=== PATIENT | male | born 1990 | race Caucasian/White ===

== ENCOUNTER 2023-10-26 08:00 | Emergency (ER) | payer OTHER, SELFPAY ==
[2023-10-26] VITALS (14 sets, daily range): BP systolic 97–133; BP diastolic 52–64; PULSE 57–88; RESP 16–19; TEMP 36.6–36.9; O2SAT 94–100; BMI 25.1
--- NOTE | 2023-10-26 08:18 | DI.RAD.S_ITS ---
PROCEDURE: XR ABDOMEN 1V INDICATIONS: vomiting and subjective abdominal distention TECHNIQUE: One view of the abdomen acquired. COMPARISON: None. FINDINGS: Surgical changes and devices: None. Bowel: Bowel gas pattern is normal. Soft tissues: No suspicious abdominal calcifications. Visualized solid organ contours appear normal in size. Bones: No suspicious bony lesions. IMPRESSION: No acute abnormality. Dictated by: Maxx Guajardo M.D. on 10/26/2023 at 8:49 Approved by: Maxx Guajardo M.D. on 10/26/2023 at 8:50
--- NOTE | 2023-10-26 08:19 | ED_ITS ---
HPI - General Adult General Chief complaint: Nausea/Vomiting/Diarrhea Stated complaint: sent by [facility] nausea low bp cough Time Seen by Provider: 10/26/23 08:06 Source: patient Mode of arrival: Ambulatory Limitations: no limitations History of Present Illness HPI narrative: Patient is a 33-year-old male. He is sent from the walk-in clinic for evaluation of just under 12 hours of nausea and vomiting and also feeling very lightheaded specifically when he stands up. He states for the past month he has had a cough in his felt poorly however last evening he started to have vomiting. He also feels like his abdomen is distended. He states he feels full but has not been eating anything. He did state that he has had a bowel movement within the past 24 hours. No urinary symptoms. He went to the walk-in clinic. Was reportedly found to be hypotensive so was sent to the ER for further evaluation. Related Data Previous Rx's Medication Instructions Recorded ondansetron 4 mg disintegrating 4 mg PO Q6H PRN nausea and 10/26/23 tablet vomiting #14 tabs Allergies Allergy/AdvReac Type Severity Reaction Status Date / Time No Known Drug Allergies Allergy Verified 10/26/23 08:16 Review of Systems Review of Systems ROS Unobtainable: All systems reviewed & are unremarkable except as noted in HPI and below Patient History Social History Smoking Status: Never smoker Exam Initial Vital Signs Initial Vital Signs: Vital Signs Temperature 98.4 F 10/26/23 08:16 Pulse Rate 85 10/26/23 08:16 Respiratory Rate 16 10/26/23 08:16 Blood Pressure 121/64 10/26/23 08:16 Pulse Oximetry 97 10/26/23 08:16 Oxygen Delivery Method Room Air 10/26/23 08:16 Const General: cooperative, comfortable and No ill appearing HENMT Head: normal to inspection and normocephalic Resp Effort & Inspection: normal respiratory effort Auscultation: clear to auscultation bilaterally Cardio Rate: regular rate Rhythm: regular rhythm GI Inspection: normal to inspection and non-distended Palpation: soft, No firm, No guarding and No tender Skin General: no rashes or lesions noted Neuro General: patient alert, patient awake, patient oriented x3 and moves all extremities Extrem General: normal to inspection and capillary refill normal Course Orders Ordered: ED Orders 10/26/23 08:18 XR abdomen 1V Stat 10/26/23 08:38 Complete Blood Count AUTO DIFF Stat Comprehensive Metabolic Panel Stat ETOH [Ethanol (ETOH)] Stat Lipase Stat Monotest Stat 10/26/23 09:02 Covid-19 + FLU A/B + RSV - PCR Stat Discontinued Medications Sodium Chloride (Normal Saline 0.9%) 1,000 mls @ 1,000 mls/hr IV BOLUS ONE Stop: 10/26/23 09:17 Last Infusion: 10/26/23 09:41 Dose: Infused Documented By: Admin: 10/26/23 08:35 Dose: 1,000 mls/hr Documented By: NUPUR Ondansetron HCl (Ondansetron 4 Mg/2 Ml Inj) 4 mg IV NOW ONE Stop: 10/26/23 08:19 Last Admin: 10/26/23 08:36 Dose: 4 mg Documented By: NUPUR Vital Signs Vital signs: Vital Signs - 8 hr 10/26/23 08:16 Temperature 98.4 F Pulse Rate 85 Respiratory Rate 16 Blood Pressure 121/64 Pulse Oximetry 97 Oxygen Delivery Method Room Air Medical Decision Making Lab Data Lab results reviewed: Yes I reviewed the patient's lab results. 10/26/23 08:38 10/26/23 08:38 Labs: Lab Results 10/26/23 10/26/23 Range/Units 08:38 09:02 WBC 8.2 (4.5-11.0) X10^3/uL RBC 5.35 (4.5-5.9) X10^6/uL Hgb 17.3 (13.5-17.5) g/dL Hct 48.5 (41-53) % MCV 90.6 (80-100) fL MCH 32.3 (26-34) PG MCHC 35.7 (30-36) % RDW 12.8 (11.6-14.8) % Plt Count 237 (150-400) X10^3/uL Neut % (Auto) 92.3 H (50-75) % Lymph % (Auto) 3.1 L (25-40) % [place] % (Auto) 4.3 (3-14) % Eos % (Auto) 0.2 L (2-4) % Baso % (Auto) 0.1 (0-2) % Neut # (Auto) 7600 H (4860-6308) /uL Lymph # (Auto) 300 L (5489-2400) /uL [place] # (Auto) 400 (0-900) /uL Eos # (Auto) 0 (0-450) /uL Baso # (Auto) 0 (0-100) /uL Sodium 141 (137-145) mmol/L Potassium 4.5 (3.4-5.1) mmol/L Chloride 104 (98-107) mmol/L Carbon Dioxide 32 (22-32) mmol/L BUN 27 H (9-20) mg/dL Creatinine 1.04 (0.66-1.25) mg/dL Estimated GFR > 60 (>60) mL/min BUN/Creatinine Ratio 26.0 H (6-22) Glucose 130 H (70-100) mg/dL Calcium 9.4 (8.4-10.2) mg/dL Total Bilirubin 1.1 (0.2-1.3) mg/dL AST 84 H (17-59) IU/L ALT 65 H (<50) IU/L Alkaline Phosphatase 65 (38-126) U/L Total Protein 8.8 H (6.3-8.2) g/dL Albumin 4.7 (3.5-5.0) g/dL Globulin 4.1 (1.7-4.1) g/dL Albumin/Globulin Ratio 1.1 (1.0-2.8) Lipase 46 (23-300) U/L Ethyl Alcohol < 10 ( - 10) mg/dL SARS-CoV-2 (PCR) Negative (Negative) Monoscreen Negative (Negative) Influenza A (RT-PCR) Flu a negative (NEGATIVE) Influenza B (RT-PCR) Flu b negative (NEGATIVE) RSV (PCR) Negative (Negative) Imaging Data Abdominal x-ray: Radiologist's Impression: PROCEDURE: XR ABDOMEN 1V INDICATIONS: vomiting and subjective abdominal distention TECHNIQUE: One view of the abdomen acquired. COMPARISON: None. FINDINGS: Surgical changes and devices: None. Bowel: Bowel gas pattern is normal. Soft tissues: No suspicious abdominal calcifications. Visualized solid organ contours appear normal in size. Bones: No suspicious bony lesions. IMPRESSION: No acute abnormality. MDM Narrative Medical decision making narrative: Not hypotensive here in the emergency department. Labs are unremarkable. Received fluids. States that his nausea somewhat better after medications. Abdominal x-ray unremarkable. I do not feel that we need more advanced imaging studies. COVID and flu both negative. Discussed this with the patient. Will send home with a prescription for Zofran and return precautions. He expressed understanding and agreement. Discharge Plan Departure Patient Disposition: Home Clinical Impression: Nausea, Lightheadedness Instructions: Nausea and Vomiting-Adult Activity Restrictions/Additional Instructions: Recommend that you eat a bland diet. Be sure that you are increasing your fluid intake. Use the nausea medication as needed. Contact your primary provider for follow-up. Return to the emergency department for new symptoms. Prescriptions: New ondansetron 4 mg tablet,disintegrating 4 mg PO Q6H PRN (Reason: nausea and vomiting) Qty: 14 0RF Referrals: Miscellaneous,Doctor, MD [Primary Care Provider] - Stand Alone Forms: Patient Portal/API
--- NOTE | 2023-10-26 08:20 | PC.NURSE ---
Pt reports everyone in house has been sick with something. Pt states he is feeling the worse out of his family. Pt endorses nausea but no vomiting or diarrhea. Pt ambulatory GCS 15. Vitals WNL. Pt states he feels weak in the head
[2023-10-26] MEDS: SODIUM CHLORIDE 0.9% 1,000 ML 1000 ML IV (08:35)
[2023-10-26] MEDS: ONDANSETRON 4 MG/2 ML INJ IV (08:36)
--- NOTE | 2023-10-26 08:44 | PC.NURSE ---
Pt reports feeling queesy after IV insertion. Pt placed in reverse trendelenburg. Vital signs montiored and stable.
[2023-10-26 08:59] LABS: Add Manual Diff / Slide Review NO; Basophils Absolute Auto 0 /uL (0-100); Basophils Percent Auto 0.1 % (0-2); Eosinophils Absolute Auto 0 /uL (0-450); Eosinophils Percent Auto 0.2 % (2-4); Hematocrit 48.5 % (41-53); Hemoglobin 17.3 g/dL (13.5-17.5); Lymphocytes Absolute Auto 300 /uL (1100-4500); Lymphocytes Percent Auto 3.1 % (25-40); Mean Corpuscular HGB Conc 35.7 % (30-36); Mean Corpuscular Hemoglobin 32.3 PG (26-34); Mean Corpuscular Volume 90.6 fL (80-100); Monocytes Absolute Auto 400 /uL (0-900); Monocytes Percent Auto 4.3 % (3-14); Neutrophils Absolute Auto 7600 /uL (1500-7000); Neutrophils Percent Auto 92.3 % (50-75); Platelet Count 237 X10^3/uL (150-400); Red Blood Cell Count 5.35 X10^6/uL (4.5-5.9); Red Cell Distribution Width 12.8 % (11.6-14.8); White Blood Cell Count 8.2 X10^3/uL (4.5-11.0)
[2023-10-26 09:03] LABS: Alanine Aminotransferase 65 IU/L (<50); Albumin 4.7 g/dL (3.5-5.0); Albumin Globulin Ratio 1.1 (1.0-2.8); Alkaline Phosphatase 65 U/L (38-126); Aspartate Aminotransferase 84 IU/L (17-59); Bilirubin Total 1.1 mg/dL (0.2-1.3); Blood Urea Nitrogen 27 mg/dL (9-20); Calcium 9.4 mg/dL (8.4-10.2); Carbon Dioxide 32 mmol/L (22-32); Chloride 104 mmol/L (98-107); Estimated Glomerular Filt Rate > 60 mL/min (>60); Globulin 4.1 g/dL (1.7-4.1); Glucose 130 mg/dL (70-100); HEMOLYSIS < 15 (0-50); Lipase 46 U/L (23-300); Potassium 4.5 mmol/L (3.4-5.1); Sodium 141 mmol/L (137-145); Total Protein 8.8 g/dL (6.3-8.2)
[2023-10-26 09:05] LABS: Monotest Negative (Negative)
[2023-10-26 09:49] LABS: Ethanol (ETOH) < 10 mg/dL
[2023-10-26 09:54] LABS: Influenza A - CEPHEID Flu A NEGATIVE (NEGATIVE); Influenza B - CEPHEID Flu B NEGATIVE (NEGATIVE); Respiratory Syncytial Virus Negative (Negative)
--- NOTE | 2023-10-26 09:59 | PC.NURSE ---
Pt states his symptoms seems to have resolved for the most part. Pt reports minimal nausea.
[2023-10-26 10:04] LABS: COVID-19 CEPHEID 4-PLEX PCR Negative (Negative)
== END 2023-10-26 10:25 | disposition home or self-care (01) ==
PROVIDERS: Emergency Provider Emergency Medicine
DX: R11.2 Nausea with vomiting, unspecified (principal); R42 Dizziness and giddiness; R14.0 Abdominal distension (gaseous); Z20.822 Contact with and (suspected) exposure to COVID-19
CPT/HCPCS: 0241U; 36415; 74018; 80053; 80320; 83690; 85025; 86318; 96361; 96374; 99284; J2405